=== PATIENT | female | born 1950 | race Caucasian/White ===

== ENCOUNTER → 2016-05-19 | Outpatient (CLI) | payer MEDICARE, BC ==
--- NOTE | 2016-05-23 08:04 | MM ---
Reason for exam: screening (asymptomatic). Last mammogram was performed 1 year and 3 months ago. History: Patient is postmenopausal. Physical Findings: A clinical breast exam by your physician is recommended on an annual basis and results should be correlated with mammographic findings. MG Screening Mammo w CAD Bilateral CC and MLO view(s) were taken. Prior study comparison: February 08, 2015, bilateral MG screening mammo w CAD. July 09, 2012, bilateral digital screening mammo w/CAD. January 18, 2011, bilateral digital screening mammo w/CAD. There are scattered fibroglandular densities. No significant changes when compared with prior studies. ASSESSMENT: Negative, BI-RAD 1 RECOMMENDATION: Routine screening mammogram of both breasts in 1 year.
== END | disposition home or self-care (01) ==
LOC: RADMAMWWP 09:24
PROVIDERS: ATTEND Obstetrics & Gynecology
DX: Z12.31 Encounter for screening mammogram for malignant neoplasm of breast (principal)

== ENCOUNTER 2017-07-21 07:25 | Emergency (ER) | payer MEDICARE ==
[2017-07-21 07:31] VITALS: TEMP 98.2
[2017-07-21] MEDS ORDERED: SODIUM CHLORIDE 0.9% 1,000 ML IV STA (08:15)
--- NOTE | 2017-07-21 08:23 | ED ---
General Adult HPI - General Chief complaint: Abdominal Pain Stated complaint: Abd/Groin Pain Time Seen by Provider: 07/21/17 08:10 Source: patient, RN notes reviewed Mode of arrival: ambulatory Limitations: no limitations - History of Present Illness Initial comments: Patient 67-year-old female presenting to the emergency room today with a chief complaint of lower abdominal pain over the last 3 days she. She states that steadily been getting worse. She describes it as sharp pain with any bowel movements or with gas. Patient states she's had some similar symptoms in the past. She does admit to some dry heaving last night. Currently rates her pain 8/10. Has declined any pain medication. Patient denies any other complaints or symptoms. Patient denies any recent fever, chills, shortness of breath, chest pain, back pain, numbness or tingling, dysuria or hematuria, constipation or diarrhea, headaches or visual changes, or any other complaints. - Related Data Home Medications Medication Instructions Recorded Confirmed Citalopram Hydrobromide [CeleXA] 20 mg PO QAM 11/27/14 03/31/15 Losartan-Hctz 50-12.5 mg [Hyzaar 1 each PO QAM 11/27/14 03/31/15 50-12.5] Omeprazole [PriLOSEC] 20 mg PO AC-BRKFST 11/27/14 03/31/15 Previous Rx's Medication Instructions Recorded Levofloxacin [Levaquin] 500 mg PO DAILY 7 Days tab 07/21/17 metroNIDAZOLE [Flagyl] 500 mg PO TID #21 tab 07/21/17 Allergies Allergy/AdvReac Type Severity Reaction Status Date / Time Penicillins Allergy Unknown Verified 07/21/17 07:31 Review of Systems ROS Statement: Those systems with pertinent positive or pertinent negative responses have been documented in the HPI. ROS Other: All systems not noted in ROS Statement are negative. Past Medical History Past Medical History: Hypertension History of Any Multi-Drug Resistant Organisms: None Reported Past Surgical History: Appendectomy, Section Additional Past Surgical History / Comment(s): half thyroid removed Past Anesthesia/Blood Transfusion Reactions: No Reported Reaction Past Psychological History: Depression Smoking Status: Never smoker Past Alcohol Use History: None Reported Past Drug Use History: None Reported General Exam - General Exam Comments Initial Comments: General: The patient is awake and alert, in no distress, and does not appear acutely ill. Eye: Pupils are equal, round and reactive to light, extra-ocular movements are intact. No nystagmus. There is normal conjunctiva bilaterally. No signs of icterus. Ears, nose, mouth and throat: There are moist mucous membranes and no oral lesions. Neck: The neck is supple, there is no tenderness or JVD. Cardiovascular: There is a regular rate and rhythm. No murmur, rub or gallop is appreciated. Respiratory: Lungs are clear to auscultation, respirations are non-labored, breath sounds are equal. No wheezes, stridor, rales, or rhonchi. Gastrointestinal: Abdomen soft on palpation. Patient does have tenderness below the abdomen and left lower quadrant. No rebound tenderness. No guarding. No CVA tenderness. Musculoskeletal: Normal ROM, no tenderness. Strength 5/5. Sensation intact. Pulses equal bilaterally 2+. Neurological: A&O x 3. CN II-XII intact, There are no obvious motor or sensory deficits. Coordination appears grossly intact. Speech is normal. Skin: Skin is warm and dry and no rashes or lesions are noted. Psychiatric: Cooperative, appropriate mood & affect, normal judgment. Limitations: no limitations Course Vital Signs 07/21/17 07/21/17 07:27 10:16 Temperature 98.2 F Pulse Rate 80 63 Respiratory 18 18 Rate Blood Pressure 148/81 130/72 O2 Sat by Pulse 98 96 Oximetry Medical Decision Making - Medical Decision Making Patient reexamined at the Center no signs of distress. She is resting. Patient labs been reviewed. Patient's CT the abdomen and pelvis does show evidence for sigmoid diverticulitis. Results were discussed with attending physician Dr. Baltazar. Patient will be discharged home placed on Levaquin and Flagyl. She is advised follow-up with family doctor next 2 days returning if symptoms increase or worsen. She states understanding and is in agreement. - Lab Data Result diagrams: 07/21/17 08:22 07/21/17 08:22 Lab Results 07/21/17 07/21/17 07/21/17 Range/Units 08:22 08:22 08:22 WBC 6.3 (3.8-10.6) k/uL RBC 4.80 (3.80-5.40) m/uL Hgb 14.8 (11.4-16.0) gm/dL Hct 44.2 (34.0-46.0) % MCV 92.2 (80.0-100.0) fL MCH 30.8 (25.0-35.0) pg MCHC 33.4 (31.0-37.0) g/dL RDW 13.1 (11.5-15.5) % Plt Count 199 (150-450) k/uL Neutrophils % 71 % Lymphocytes % 21 % Monocytes % 5 % Eosinophils % 1 % Basophils % 1 % Neutrophils # 4.5 (1.3-7.7) k/uL Lymphocytes # 1.3 (1.0-4.8) k/uL Monocytes # 0.3 (0-1.0) k/uL Eosinophils # 0.1 (0-0.7) k/uL Basophils # 0.0 (0-0.2) k/uL Sodium 140 (137-145) mmol/L Potassium 4.1 (3.5-5.1) mmol/L Chloride 104 (98-107) mmol/L Carbon Dioxide 26 (22-30) mmol/L Anion Gap 10 mmol/L BUN 14 (7-17) mg/dL Creatinine 0.70 (0.52-1.04) mg/dL Est GFR (CKD-EPI)AfAm >90 (>60 ml/min/1.73 sqM) Est GFR (CKD-EPI)NonAf 90 (>60 ml/min/1.73 sqM) Glucose 128 H (74-99) mg/dL Calcium 9.5 (8.4-10.2) mg/dL Total Bilirubin 0.9 (0.2-1.3) mg/dL AST 17 (14-36) U/L ALT 29 (9-52) U/L Alkaline Phosphatase 77 (38-126) U/L Total Protein 6.8 (6.3-8.2) g/dL Albumin 4.0 (3.5-5.0) g/dL Amylase 49 (30-110) U/L Lipase 89 (23-300) U/L Urine Color Yellow Urine Appearance Clear (Clear) Urine pH 6.0 (5.0-8.0) Ur Specific [place] 1.018 (1.001-1.035) Urine Protein Negative (Negative) Urine Glucose (UA) Negative (Negative) Urine Ketones 1+ H (Negative) Urine Blood Trace H (Negative) Urine Nitrite Negative (Negative) Urine Bilirubin Negative (Negative) Urine Urobilinogen <2.0 (<2.0) mg/dL Ur Leukocyte Esterase Small H (Negative) Urine RBC 3 (0-5) /hpf Urine WBC 6 H (0-5) /hpf Ur Squamous Epith Cells 2 (0-4) /hpf Urine Bacteria Rare H (None) /hpf Urine Mucus Rare H (None) /hpf Disposition Clinical Impression: Acute diverticulitis Disposition: HOME SELF-CARE Condition: Good Instructions: Diverticulitis (ED) Additional Instructions: Please use medication as discussed. Please follow-up with family doctor in the next 2 days of symptoms have not improved. Please return to emergency room if the symptoms increase or worsen or for any other concerns. Prescriptions: Levofloxacin [Levaquin] 500 mg PO DAILY 7 Days tab metroNIDAZOLE [Flagyl] 500 mg PO TID #21 tab Is patient prescribed a controlled substance at d/c from ED?: No Referrals: Heath Gomez DO [Primary Care Provider] - 1-2 days Time of Disposition: 10:27
[2017-07-21 08:46] LABS: Basophils % (A) 1 %; Eosinophils # (A) 0.1 k/uL (0-0.7); Eosinophils % (A) 1 %; HCT 44.2 % (34.0-46.0); HGB 14.8 gm/dL (11.4-16.0); Lymphocytes # (A) 1.3 k/uL (1.0-4.8); Lymphocytes % (A) 21 %; MCH 30.8 pg (25.0-35.0); MCHC 33.4 g/dL (31.0-37.0); MCV 92.2 fL (80.0-100.0); Mean Platelet Volume 7.4; Monocytes # (A) 0.3 k/uL (0-1.0); Monocytes % (A) 5 %; Neutrophils # (A) 4.5 k/uL (1.3-7.7); Neutrophils % (A) 71 %; Platelet Count 199 k/uL (150-450); RDW 13.1 % (11.5-15.5); WBC 6.3 k/uL (3.8-10.6)
[2017-07-21 08:55] LABS: Appearance,Urine Clear (Clear); Bacteria,Urine Rare /hpf; Bilirubin,Urine Negative (Negative); Blood,Urine Trace (Negative); Color,Urine Yellow; Glucose,Urine (UA) Negative (Negative); Ketones,Urine 1+ (Negative); Leukocyte Esterase,Urine Small (Negative); Mucus,Urine Rare /hpf; Nitrite,Urine Negative (Negative); Protein,Urine Negative (Negative); RBC,Urine 3 /hpf (0-5); Specific Gravity,Urine 1.018 (1.001-1.035); Squamous Epithelial Cell,Urine 2 /hpf (0-4); Urobilinogen,Urine <2.0 mg/dL (<2.0); WBC,Urine 6 /hpf (0-5)
[2017-07-21 09:19] LABS: ALT 29 U/L (9-52); AST 17 U/L (14-36); Alkaline Phosphatase 77 U/L (38-126); Amylase 49 U/L (30-110); Anion Gap 10 mmol/L; Blood Urea Nitrogen 14 mg/dL (7-17); Calcium 9.5 mg/dL (8.4-10.2); Carbon Dioxide 26 mmol/L (22-30); Chloride 104 mmol/L (98-107); Glucose 128 mg/dL (74-99); Lipase 89 U/L (23-300); Potassium 4.1 mmol/L (3.5-5.1); Sodium 140 mmol/L (137-145); Total Bilirubin 0.9 mg/dL (0.2-1.3); Total Protein 6.8 g/dL (6.3-8.2)
[2017-07-21] MEDS ORDERED: ONDANSETRON 4 MG/2 ML VIAL IVP STA (10:09)
[2017-07-21] MEDS ORDERED: MORPHINE SULFATE 2 MG/ML SYRINGE IVP STA (10:09)
--- NOTE | 2017-07-21 10:09 | CT ---
EXAMINATION TYPE: CT abdomen pelvis w con DATE OF EXAM: 07/21/2017 COMPARISON: CT 09/25/2015 HISTORY: Abdominal pain. LLQ CT DLP: 1621.10 mGycm. Automated exposure control for dose reduction was used. TECHNIQUE: Helical acquisition of images was performed from the lung bases through the pelvis. CONTRAST: Performed with Oral Contrast and with IV Contrast, patient injected with 100 ml mL of Isovu e 300. FINDINGS: LUNG BASES: No significant abnormality is appreciated. LIVER/GB: No significant abnormality is appreciated. PANCREAS: No significant abnormality is seen. SPLEEN: No significant abnormality is seen. ADRENALS: No significant abnormality is seen. KIDNEYS: No significant abnormality is seen. There are a few tiny 1 and 2 mm nonobstructing renal valentine cifications appreciated. FREE AIR: No free air is visualized. RETROPERITONEAL ADENOPATHY: None visualized REPRODUCTIVE ORGANS: No significant abnormality is seen URINARY BLADDER: No significant abnormality is seen. PELVIC ADENOPATHY: None visualized. OSSEOUS STRUCTURES: No significant abnormality is seen. BOWEL: There is sigmoid mural thickening and innumerable diverticula. More impressive is the indisti nctness of the sigmoid with the surrounding mesocolon. The mucosal: Shows reticular edematous change without gas bubbles and without drainable fluid collection. The findings are consistent with mild-to- moderate sigmoid diverticulitis. Not recently obtained, eventual follow-up colonoscopy is requested t o ensure normal underlying mucosa. VASCULATURE: Unremarkable. IMPRESSION: MODERATE SIGMOID DIVERTICULITIS.
[2017-07-21 10:45] VITALS: BP 125/67; PULSE 61; RESP 20
== END 2017-07-21 10:45 | disposition home or self-care (01) ==
LOC: EC 07:25
DX: K57.32 Diverticulitis of large intestine without perforation or abscess without bleeding (principal); I10 Essential (primary) hypertension; F32.9 Major depressive disorder, single episode, unspecified; Z90.49 Acquired absence of other specified parts of digestive tract; Z79.899 Other long term (current) drug therapy; Z88.0 Allergy status to penicillin
CPT/HCPCS: 99284; 96374; 96375; 96361; 36415; 80053; 82150; 83690; 85025; 81001; 74177; J2405; J2270; Q9967

== ENCOUNTER 2018-01-04 08:45 | Day surgery (SDC) | payer MEDICARE ==
[2018-01-03 08:46] VITALS: BMI 39.5
[~2018-01-04 08:45] MED LIST: LACTATED RINGERS 1,000 ML IV SCH
[2018-01-04] MEDS ORDERED: LIDOCAINE 1% 20 ML VIAL (10MG/ML) FOR IV START INTRADERMA ONE (09:38)
[2018-01-04 09:45] VITALS: RESP 16; TEMP 97.4
[2018-01-04] MEDS ORDERED: PROPOFOL 10 MG/ML 20 ML VIAL IV ONE (10:04)
[2018-01-04] MEDS ORDERED: GLYCOPYRROLATE 0.2 MG/ML 2 ML VIAL ONE (10:04)
[2018-01-04] MEDS ORDERED: LIDOCAINE 1% INJ 10MG/ML (20 ML MDV) ONE (10:04)
--- NOTE | 2018-01-04 10:13 | P.PCN ---
Date of Procedure: 01/04/18 Procedure(s) Performed: BRIEF HISTORY: Patient is a 67-year-old, pleasant, female, scheduled for an upper endoscopy as a part of evaluation of chronic indigestion and intermittent nausea vomiting for the last 2 years duration.. PROCEDURE PERFORMED: Esophagogastroduodenoscopy with biopsy. PREOPERATIVE DIAGNOSIS: Chronic indigestion and intermittent nausea vomiting of 2 years duration. IV sedation per anesthesia. PROCEDURE: After informed consent was obtained, the patient was brought into the endoscopy unit. IV sedation was administered by Anesthesia under continuous monitoring. Initially the Olympus GIF-140 video endoscope was inserted into the mouth. Esophagus intubated without any difficulty. It was gradually advanced into the stomach and duodenum and carefully examined. The bulb and the second part of the duodenum appeared normal. The scope at this time was withdrawn to the stomach, adequately insufflated with air, and upon careful examination, mucosa of the antrum and mild gastritis and biopsies were done from this area. The body, cardia and the fundus appeared normal. The scope was then withdrawn into the esophagus. The size hiatal hernia noted. The GE junction was located at 33 cm from the incisors. There were linear erosions in the distal esophagus consistent with LA grade B reflux esophagitis. Rest of the esophagus appeared normal and the patient tolerated the procedure well. IMPRESSION: 1. Linear erosions in the distal esophagus consistent with LA grade B reflux esophagitis. 2. Moderate size hiatal hernia and mild antral gastritis. RECOMMENDATIONS: The findings of this examination were discussed with the patient is a family. She was advised to follow with the biopsy results. She will be given a prescription for Prilosec 20 mg daily to be taken half hour before breakfast and follow antireflux measures. .
[2018-01-04 10:59] VITALS: BP 123/74; PULSE 77
== END 2018-01-04 11:02 | disposition home or self-care (01) ==
LOC: ORWHC2ENDO 08:45
PROVIDERS: ATTEND Internal Medicine Gastroenterology
DX: K21.0 Gastro-esophageal reflux disease with esophagitis (principal); K29.50 Unspecified chronic gastritis without bleeding; K44.9 Diaphragmatic hernia without obstruction or gangrene; Z79.82 Long term (current) use of aspirin; Z79.899 Other long term (current) drug therapy; I10 Essential (primary) hypertension; Z88.0 Allergy status to penicillin
CPT/HCPCS: 88305; 43239; J2001; J2704

== ENCOUNTER → 2018-06-25 | Outpatient (CLI) | payer MEDICARE ==
--- NOTE | 2018-06-26 08:36 | BD ---
EXAMINATION TYPE: Axial Bone Density DATE OF EXAM: 06/25/2018 COMPARISON: NONE CLINICAL HISTORY: 68 YR OLD FEMALE....ICD-10 CODE: Z78.0 POSTMENOPAUSAL, M81.0 KNOWN OSTEOPENIA Height: 65.4 Weight: 236 FRAX RISK QUESTIONS: NOTHING TO NOTE HERE RISK FACTORS HISTORY OF: HX OF FINGER FX UNDER 50 YRS OLD History of Wrist Fracture: RT WRIST, UNDER 50 YRS OLD Postmenopausal woman: YES AT AGE 56 YRS Lost more than 2 inches in height since high school: YES MEDICATIONS: Additional Medications: BP MEDS, REFLUX MEDS, Additional History: HYPERTENSION EXAM MEASUREMENTS: Bone mineral densitometry was performed using the [employer] System. Bone mineral density as measured about the Lumbar spine is: ----- L1-L4(G/cm2): 1.417 T Score Values are as follows: ----- L1: 1.6 ----- L2: 1.8 ----- L3: 1.8 ----- L4: 2.5 ----- L1-L4: 2.0 Bone mineral density FIRST DEXA SCAN AT [facility] Bone mineral density about the R hip (g/cm2): 1.056 Bone mineral density about the L hip (g/cm2): 1.166 T Score values are as follows: -----R Neck: -0.4 -----L Neck: -0.3 -----R Total: 0.4 -----L Total: 1.3 Bone mineral density FIRST DEXA AT [facility] FRAX%s: THERE IS A 6.8% CHANCE FOR A MAJOR OSTEOPOROTIC FX AND A 0.3% FOR HIP FX....PROBABILITY OF FX IN 10 YRS TIME IMPRESSION: Normal (Values between +1 and -1 indicate normal bone mass). Consider repeating this study in 5 year s or sooner if there is some new clinical indication. NOTE: T-SCORE=SD OF THE YOUNG ADULT MEAN.
--- NOTE | 2018-06-26 10:14 | MM ---
Reason for exam: screening (asymptomatic). Last mammogram was performed 2 years and 1 month ago. History: Patient is postmenopausal. Physical Findings: A clinical breast exam by your physician is recommended on an annual basis and results should be correlated with mammographic findings. MG Screening Mammo w CAD Bilateral CC and MLO view(s) were taken. Prior study comparison: May 19, 2016, bilateral MG screening mammo w CAD. February 08, 2015, bilateral MG screening mammo w CAD. There are scattered fibroglandular densities. No significant changes when compared with prior studies. ASSESSMENT: Negative, BI-RAD 1 RECOMMENDATION: Routine screening mammogram of both breasts in 1 year.
== END ==
LOC: RADMAMWWP 14:51
PROVIDERS: ATTEND Family Medicine
DX: Z12.31 Encounter for screening mammogram for malignant neoplasm of breast (principal); M81.0 Age-related osteoporosis without current pathological fracture; Z78.0 Asymptomatic menopausal state
CPT/HCPCS: 77067; 77080

== ENCOUNTER → 2018-09-02 | Outpatient (CLI) | payer MEDICARE ==
--- NOTE | 2018-09-03 17:49 | ECHOF ---
Referral Reason:I10 HTN MEASUREMENTS -------- HEIGHT: 170.2 cm WEIGHT: 104.3 kg BP: RVIDd: 3.0 cm (< 3.3) IVSd: 1.3 cm (0.6 - 1.1) LVIDd: 4.3 cm (3.9 - 5.3) LVPWd: 1.0 cm (0.6 - 1.1) IVSs: 1.5 cm LVIDs: 3.0 cm LVPWs: 1.1 cm LA Diam: 3.7 cm (2.7 - 3.8) LAESV Index (A-L): 23.97 ml/m Ao Diam: 3.0 cm (2.0 - 3.7) AV Cusp: 1.5 cm (1.5 - 2.6) LA Diam: 4.1 cm (2.7 - 3.8) MV EXCURSION: 22.560 mm (> 18.000) MV EF SLOPE: 183 mm/s (70 - 150) EPSS: 0.3 cm MV E Saroj: 0.56 m/s MV DecT: 145 ms MV A Saroj: 0.72 m/s MV E/A Ratio: 0.78 RAP: 5.00 mmHg RVSP: 27.77 mmHg FINDINGS -------- Sinus rhythm. This was a technically adequate study. The left ventricular size is normal. There is mild concentric left ventricular hypertrophy. Overa ll left ventricular systolic function is normal with, an EF between 55 - 60 %. The right ventricle is normal in size. The left atrium is mildly dilated. Normal LA size by volume 22+/-6 ml/m2. The right atrial size is normal. The aortic valve is trileaflet, and appears structurally normal. No aortic stenosis or regurgitation. Mild mitral regurgitation is present. Mild tricuspid regurgitation present. There is no evidence of pulmonary hypertension. The right v entricular systolic pressure, as measured by Doppler, is 27.77mmHg. There is no pulmonic regurgitation present. The aortic root size is normal. There is no pericardial effusion. CONCLUSIONS -------- 1. The left ventricular size is normal. 2. There is mild concentric left ventricular hypertrophy. 3. Overall left ventricular systolic function is normal with, an EF between 55 - 60 %. 4. The right ventricle is normal in size. 5. The left atrium is mildly dilated. 6. Normal LA size by volume 22+/-6 ml/m2. 7. The right atrial size is normal. 8. The aortic valve is trileaflet, and appears structurally normal. No aortic stenosis or regurgitati on. 9. Mild mitral regurgitation is present. 10. Mild tricuspid regurgitation present. 11. There is no evidence of pulmonary hypertension. 12. The right ventricular systolic pressure, as measured by Doppler, is 27.77mmHg. 13. There is no pulmonic regurgitation present. 14. The aortic root size is normal. 15. There is no pericardial effusion. CUSTOMER RELATIONSHIP SPECIALIST: Dinora Richards RDCS
== END | disposition home or self-care (01) ==
LOC: RADECHMAIN 15:21
PROVIDERS: ATTEND Family Medicine
DX: I11.9 Hypertensive heart disease without heart failure (principal); I08.1 Rheumatic disorders of both mitral and tricuspid valves
CPT/HCPCS: 93306

== ENCOUNTER → 2018-11-15 | Outpatient (CLI) | payer MEDICARE ==
--- NOTE | 2018-11-16 03:10 | MR ---
EXAMINATION TYPE: MR tmj wo con DATE OF EXAM: 11/15/2018 COMPARISON: None HISTORY: Otalgia, right ear, jaw pain x 3 mths Standard multiplanar, multisequence MRI departmental protocol Multiplanar, multisequence images of the temporomandibular joints were acquired. FINDINGS: The left temporal mandibular joint appears intact. The meniscus is in normal position with the close mouth view. On the right side there is anterior displacement of the meniscus on the closed mouth view. On the open-mouth view there is normal anterior subluxation of the left mandibular condyle. The menis cus is in normal position above the mandibular condyle. On the right side there is normal anterior subluxation of the mandibular condyle. The meniscus is dis placed slightly anteriorly. I see no focal bone destruction. There is no evidence of a soft tissue ma ss. . IMPRESSION: There is abnormal appearance of the right side meniscus which is displaced anteriorly. Normal left side temporomandibular joint.
== END | disposition home or self-care (01) ==
LOC: RADMRIMAIN 13:43
PROVIDERS: ATTEND Otolaryngology
DX: H92.01 Otalgia, right ear (principal)
CPT/HCPCS: 70336

== ENCOUNTER → 2018-11-26 | Outpatient (CLI) | payer MEDICARE ==
[2018-11-26 13:05] LABS: HCT 45.6 % (34.0-46.0); HGB 14.6 gm/dL (11.4-16.0); MCV 93.6 fL (80.0-100.0); Mean Platelet Volume 6.8; Platelet Count 237 k/uL (150-450); RBC 4.88 m/uL (3.80-5.40); RDW 12.6 % (11.5-15.5); WBC 5.2 k/uL (3.8-10.6)
== END | disposition home or self-care (01) ==
LOC: LABPAT 11:20
PROVIDERS: ATTEND Anesthesiology
DX: Z01.812 Encounter for preprocedural laboratory examination (principal)
CPT/HCPCS: 36415; 85027

== ENCOUNTER 2018-11-27 06:21 | Day surgery (SDC) | payer MEDICARE ==
[2018-11-25 10:33] VITALS: BMI 37.1
[~2018-11-27 06:21] MED LIST changes: +DEXAMETHASONE SOD PHOSPHATE 10 MG/ML 1 ML VIAL IV ONE; +HYDROmorphone 0.5 MG/0.5 ML SYRINGE IVP PRN; +LIDOCAINE 1% 20 ML VIAL (10MG/ML) FOR IV START INTRADERMA PRN; +MIDAZOLAM 2 MG/2 ML VIAL IV PRN; +ONDANSETRON 4 MG/2 ML VIAL IVP ONE; +SCOPOLAMINE 1.5MG/72HR PATCH TRANSDERM ONE
[2018-11-27] MEDS ORDERED: LACTATED RINGERS 1,000 ML IV ONE ×2 (07:01→07:02)
[2018-11-27] MEDS ORDERED: HEPARIN SODIUM,PORCINE 5,000 UNIT/ML 1 ML VIAL SQ ONE (07:56)
--- NOTE | 2018-11-27 08:04 | P.GSHP ---
History of Present Illness H&P Date: 11/27/18 Chief Complaint: Right inguinal hernia 68-year-old female presents today for right inguinal hernia. Patient has complaints of mild pain at that location. Increasing in size per patient. No history of previous hernia repair. Recent CAT scan ironically did not show the hernia. Past Medical History Past Medical History: Hypertension Additional Past Medical History / Comment(s): rt inguinal hernia History of Any Multi-Drug Resistant Organisms: None Reported Past Surgical History: Appendectomy, Section Additional Past Surgical History / Comment(s): half thyroid removed. COLONOSCOPY. EGD Past Anesthesia/Blood Transfusion Reactions: No Reported Reaction Smoking Status: Never smoker - Past Family History Father Family Medical History: Coronary Artery Disease (CAD), CVA/TIA Additional Family Medical History / Comment(s): "blood clot to intestines- 80% of intestine removed" Mother Family Medical History: Cancer Additional Family Medical History / Comment(s): cancer of hip Sister(s) Family Medical History: Cancer Additional Family Medical History / Comment(s): melanoma Medications and Allergies Home Medications Medication Instructions Recorded Confirmed Type Losartan-Hctz 50-12.5 mg [Hyzaar 1 each PO QAM 11/27/14 11/25/18 History 50-12.5] Aspirin [Adult Low Dose Aspirin EC] 81 mg PO DAILY 01/03/18 11/25/18 History Celecoxib [CeleBREX] 200 mg PO DAILY 11/25/18 11/25/18 History Cetirizine HCl [Zyrtec] 10 mg PO DAILY 11/25/18 11/25/18 History Allergies Allergy/AdvReac Type Severity Reaction Status Date / Time Penicillins Allergy Rash/Hives Verified 11/25/18 10:22 Surgical - Exam Vital Signs Temp Pulse Resp BP Pulse Ox 97.6 F 72 18 155/79 96 11/27/18 06:38 11/27/18 06:38 11/27/18 06:38 11/27/18 06:38 11/27/18 06:38 Physical exam: General: Well-developed, well-nourished HEENT: Normocephalic, sclerae nonicteric Abdomen: Nontender, nondistended, reducible right inguinal hernia Extremities: No edema Neuro: Alert and oriented Assessment and Plan (1) Right inguinal hernia Narrative/Plan: Will proceed with laparoscopic da Cesar assisted repair right inguinal hernia with mesh, possible bilateral. Risks of bleeding, infection, recurrence, bladder and bowel injury, numbness, nerve injury, conversion to an open procedure were discussed with the patient. The patient understands and wishes to proceed. Current Visit: Yes Status: Acute Code(s): K40.90 - UNIL INGUINAL HERNIA, W/O OBST OR GANGR, NOT SPCF RECUR SNOMED Code(s): 530829651
[2018-11-27] MEDS ORDERED: NEOSTIGMINE 1 MG/ML 10 ML VIAL ONE (08:08)
[2018-11-27] MEDS ORDERED: MIDAZOLAM 2 MG/2 ML VIAL ONE (08:08)
[2018-11-27] MEDS ORDERED: KETOROLAC 30 MG/ML 1 ML VIAL ONE (08:08)
[2018-11-27] MEDS ORDERED: HYDROmorphone (PF) 1 MG/ML ONE (08:08)
[2018-11-27] MEDS ORDERED: SUCCINYLCHOLINE CHLORIDE 100 MG/5 ML SYR IV ONE (08:08)
[2018-11-27] MEDS ORDERED: fentaNYL (PF) 50 MCG/ML 2 ML AMP ONE (08:08)
[2018-11-27] MEDS ORDERED: PROPOFOL 10 MG/ML 20 ML VIAL IV ONE (08:08)
[2018-11-27] MEDS ORDERED: GLYCOPYRROLATE 0.2 MG/ML 2 ML VIAL ONE (08:08)
[2018-11-27] MEDS ORDERED: LIDOCAINE 1% INJ 10MG/ML (20 ML MDV) ONE (08:08)
[2018-11-27] MEDS ORDERED: ROCURONIUM BROMIDE 10 MG/ML 10 ML VIAL IV ONE (08:08)
[2018-11-27] MEDS ORDERED: BUPIVACAINE (PF) 0.25% 30 ML VIAL SQ ONE ×2 (08:50)
[2018-11-27 09:42] VITALS: TEMP 97.8
[2018-11-27] MEDS ORDERED: HYDROcodone/APAP 5-325MG 1 EACH TAB PO PRN (09:42)
[2018-11-27] MEDS ORDERED: NALOXONE 0.4 MG/ML 1 ML VIAL IV PRN (09:42)
--- NOTE | 2018-11-27 09:46 | P.OP ---
Date of Procedure: 11/27/18 Procedure(s) Performed: PREOPERATIVE DIAGNOSIS: Right inguinal hernia POSTOPERATIVE DIAGNOSIS: Same PROCEDURE: Laparoscopic repair right inguinal hernia with the da Cesar robot assistance with mesh SURGEON: Erlinda EBL: Minimal ANESTHESIA: General COMPLICATIONS: None OPERATIVE PROCEDURE: Patient was placed in the operating table in the supine position. The patient was placed under general anesthesia. The abdomen was prepped and draped in usual sterile fashion. A small curvilinear supraumbilical incision was made. The fascia was retracted anteriorly with Ulises forceps. The Veress needle was inserted. The saline drop test was normal. Insufflation took place to 15 mmHg. A 5 mm trocar was placed into the peritoneal cavity. This was later switched to a 12 mm trocar. 2 additional 8 mm trochars were placed in the right upper quadrant and left upper quadrant under visualization. The patient had some adhesions between the omentum and the abdominal wall in 2 separate locations. These were sharply lysed without difficulty. The robotic arms were then brought in and docked into place. The fenestrated bipolar was used in the left arm and the laparoscopic andrew was utilized in the right arm. A 30 12 mm scope was used in the up position. The peritoneal cavity was inspected. A she had an obvious direct hernia on the right. There was some mild scarring of the adjacent peritoneum. There was no hernia on the left. The peritoneum was incised in a horizontal fashion cephalad to the internal inguinal ring. Following that careful dissection of the preperitoneal space took place. This took place using both electrocautery, sharp dissection but primarily blunt dissection. Visualization of the pubic tubercle and Chris's ligament took place medially. Full dissection took place laterally as well. The hernia sac was fully dissected. Once we had adequate space the 15 x 10 progrip mesh was advanced into the preperitoneal space and flattened out appropriately to cover all potential hernia sites. No sutures were used. The peritoneal defect was then closed using a locking 2-0 VLok suture. The pneumoperitoneum was then evacuated. The fascia at the 12 mm site was closed using the Joe Wilks technique and an 0 Vicryl stitch. The skin of all 3 sites was closed using a 4- 0 Monocryl stitch. Skin glue was then applied. DISPOSITION: Stable to recovery room
[2018-11-27 11:14] VITALS: RESP 18
[2018-11-27 11:18] VITALS: BP 128/78; PULSE 54
[2018-11-27] MEDS ORDERED: HYDROcodone/APAP 5-325MG 1 EACH TAB PO ONE (11:50)
== END 2018-11-27 12:20 | disposition home or self-care (01) ==
LOC: OR 06:21
PROVIDERS: ATTEND Surgery
DX: K40.90 Unilateral inguinal hernia, without obstruction or gangrene, not specified as recurrent (principal); I10 Essential (primary) hypertension; K21.9 Gastro-esophageal reflux disease without esophagitis; E66.9 Obesity, unspecified; Z68.35 Body mass index [BMI] 35.0-35.9, adult; E89.0 Postprocedural hypothyroidism; Z82.49 Family history of ischemic heart disease and other diseases of the circulatory system; Z82.3 Family history of stroke; Z80.8 Family history of malignant neoplasm of other organs or systems; Z84.89 Family history of other specified conditions; Z79.82 Long term (current) use of aspirin; Z79.899 Other long term (current) drug therapy; Z88.0 Allergy status to penicillin; Z91.030 Bee allergy status
CPT/HCPCS: 49650; S2900

== ENCOUNTER → 2019-09-30 | Outpatient (CLI) | payer MEDICARE ==
--- NOTE | 2019-09-30 14:09 | XR ---
EXAMINATION TYPE: XR chest 2V DATE OF EXAM: 09/30/2019 COMPARISON: NONE HISTORY: Shortness of breath TECHNIQUE: Frontal and lateral views of the chest are obtained. FINDINGS: Scattered senescent parenchymal changes noted. No evidence for infiltrate. No evidence for atelectasis. Heart size is stable. Mediastinal structures are stable and grossly unremarkable. No evidence for hilar prominence. Degenerative changes dorsal spine. IMPRESSION: 1. No evidence for acute pulmonary disease.
== END | disposition home or self-care (01) ==
LOC: RADXRMAIN 13:44
PROVIDERS: ATTEND Family Medicine
DX: R06.02 Shortness of breath (principal); R05 Cough; R06.2 Wheezing; K21.9 Gastro-esophageal reflux disease without esophagitis
CPT/HCPCS: 71046

== ENCOUNTER 2021-01-14 07:36 | Day surgery (SDC) | payer MEDICARE ==
[2021-01-12 13:40] VITALS: BMI 39.7
[~2021-01-14 07:36] MED LIST changes: -DEXAMETHASONE SOD PHOSPHATE 10 MG/ML 1 ML VIAL IV ONE; -HYDROmorphone 0.5 MG/0.5 ML SYRINGE IVP PRN; -LIDOCAINE 1% 20 ML VIAL (10MG/ML) FOR IV START INTRADERMA PRN; -MIDAZOLAM 2 MG/2 ML VIAL IV PRN; -ONDANSETRON 4 MG/2 ML VIAL IVP ONE; -SCOPOLAMINE 1.5MG/72HR PATCH TRANSDERM ONE
[2021-01-14 08:08] VITALS: TEMP 97
[2021-01-14] MEDS ORDERED: PROPOFOL 10 MG/ML 20 ML VIAL IV ONE (08:47)
[2021-01-14] MEDS ORDERED: LIDOCAINE 1% INJ 10MG/ML (20 ML MDV) ONE (08:47)
--- NOTE | 2021-01-14 09:05 | P.PCN ---
Date of Procedure: 01/14/21 Procedure(s) Performed: BRIEF HISTORY: Patient is a 70-year-old pleasant white female scheduled for an elective colonoscopy as a part of value should prior history of colon polyps. Last colonoscopy was 5 years ago. PROCEDURE PERFORMED: Colonoscopy with snare polypectomy. PREOPERATIVE DIAGNOSIS: History of colon polyps. IV sedation per Anesthesia. PROCEDURE: After informed consent was obtained, the patient, was brought into the endoscopy unit. IV sedation was administered by Anesthesia under continuous monitoring. Digital rectal examination was normal. Initially the Olympus CF-160 flexible video colonoscope was then inserted in the rectum, gradually advanced into the cecum without any difficulty. Careful examination was performed as the scope was gradually being withdrawn. Ileocecal valve and the appendiceal orifice were visualized and appeared normal. Prep was excellent. Mucosa of the cecum, ascending colon, transverse colon, descending colon, sigmoid colon, and rectum appeared normal. On recent sigmoid diverticulosis. Retroflexion was performed in the rectum and no lesions were seen. The patient tolerated the procedure well. IMPRESSION: Normal-appearing colon from rectum to cecum with no evidence of colorectal neoplasia . Moderate sigmoid diverticulosis. RECOMMENDATIONS: Findings of this examination were discussed with the patient as well as her Family. She was advised to have a repeat colonoscopy in 5 years from now because of the prior history of colon polyps..
[2021-01-14 09:13] VITALS: RESP 16
[2021-01-14 09:27] VITALS: BP 146/89; PULSE 73
== END 2021-01-14 09:46 | disposition home or self-care (01) ==
LOC: ORWHC2ENDO 07:36
PROVIDERS: ATTEND Internal Medicine Gastroenterology
DX: Z12.11 Encounter for screening for malignant neoplasm of colon (principal); K57.30 Diverticulosis of large intestine without perforation or abscess without bleeding; I10 Essential (primary) hypertension; Z86.010 Personal history of colon polyps; Z79.899 Other long term (current) drug therapy; Z88.0 Allergy status to penicillin
CPT/HCPCS: J2001; J2704; G0105

== ENCOUNTER → 2021-11-23 | Outpatient (CLI) | payer MEDICARE ==
--- NOTE | 2021-11-24 08:27 | MM ---
Reason for Exam: Screening (asymptomatic). Last mammogram was performed 3 year(s) and 5 month(s) ago. Patient History: Menarche at age 13. First Full-Term at age 29. Postmenopausal. Risk Values: Brittany 5 year model risk: 1.9%. NCI Lifetime model risk: 5.4%. Prior Study Comparison: 02/08/2015 Bilateral Screening Mammogram, [facility]. 05/19/2016 Bilateral Screening Mammogram, [facility]. 06/25/2018 Bilateral Screening Mammogram, [facility]. Tissue Density: There are scattered fibroglandular densities. Findings: Analyzed By CAD. There is no suspicious group of microcalcifications or new suspicious mass in either breast. Stable chronic nodularity within the right breast. No significant change from prior exams. Overall Assessment: Benign, BI-RAD 2 Management: Screening Mammogram of both breasts in 1 year. A clinical breast exam by your physician is recommended on an annual basis and results should be correlated with mammographic findings. Electronically signed and approved by: Sudheer Starks D.O.
--- NOTE | 2021-11-24 08:27 | MM ---
Reason for Exam: Screening (asymptomatic). Last mammogram was performed 3 year(s) and 5 month(s) ago. Patient History: Menarche at age 13. First Full-Term at age 29. Postmenopausal. Risk Values: Brittany 5 year model risk: 1.9%. NCI Lifetime model risk: 5.4%. Prior Study Comparison: 02/08/2015 Bilateral Screening Mammogram, [facility]. 05/19/2016 Bilateral Screening Mammogram, [facility]. 06/25/2018 Bilateral Screening Mammogram, [facility]. Tissue Density: There are scattered fibroglandular densities. Findings: Analyzed By CAD. There is no suspicious group of microcalcifications or new suspicious mass in either breast. Stable chronic nodularity within the right breast. No significant change from prior exams. Overall Assessment: Benign, BI-RAD 2 Management: Screening Mammogram of both breasts in 1 year. A clinical breast exam by your physician is recommended on an annual basis and results should be correlated with mammographic findings. Electronically signed and approved by: Sudheer Starks D.O.
== END | disposition home or self-care (01) ==
LOC: RADMAMWWP 13:03
PROVIDERS: ATTEND Family Medicine
DX: Z12.31 Encounter for screening mammogram for malignant neoplasm of breast (principal)
CPT/HCPCS: 77063; 77067

== ENCOUNTER → 2021-12-13 | Outpatient (CLI) | payer MEDICARE | END | disposition home or self-care (01) | LOC: RADECHMAIN 12:23 | PROVIDERS: ATTEND Family Medicine | DX: I48.91 Unspecified atrial fibrillation (principal) | CPT/HCPCS: 93270 ==

== ENCOUNTER → 2023-01-10 | Outpatient (CLI) | payer MEDICARE ==
--- NOTE | 2023-01-14 18:00 | MM ---
Reason for Exam: Screening (asymptomatic). Last mammogram was performed 1 year(s) and 2 month(s) ago. Patient History: Menarche at age 13. First Full-Term at age 29. Postmenopausal. Risk Values: Brittany 5 year model risk: 2.0%. NCI Lifetime model risk: 5.1%. Prior Study Comparison: 05/19/2016 Bilateral Screening Mammogram, [facility]. 06/25/2018 Bilateral Screening Mammogram, [facility]. 11/23/2021 Bilateral MG 3D screening mammo w/cad, [facility]. Tissue Density: There are scattered fibroglandular densities. Findings: Analyzed By CAD. There is no suspicious group of microcalcifications or new suspicious mass in either breast. Overall Assessment: Negative, BI-RAD 1 Management: Screening Mammogram of both breasts in 1 year. . Patient should continue monthly self-breast exams. A clinical breast exam by your physician is recommended on an annual basis. This exam should not preclude additional follow-up of suspicious palpable abnormalities. Note on Brittany scores and lifetime risk: 1. A Brittany score greater than 3% is considered moderate risk. If this is the case, consider specialist referral to assess eligibility for a risk reducing agent. 2. If overall lifetime risk for the development of breast cancer is 20% or higher, the patient may qualify for future screening with alternating mammogram and breast MRI. Electronically signed and approved by: Gideon Ford M.D. Radiologist
== END | disposition home or self-care (01) ==
LOC: RADMAMWWP 10:10
PROVIDERS: ATTEND Family Medicine
DX: Z12.31 Encounter for screening mammogram for malignant neoplasm of breast (principal); Z78.0 Asymptomatic menopausal state
CPT/HCPCS: 77063; 77067

== ENCOUNTER → 2023-02-15 | Outpatient (CLI) | payer MEDICARE ==
--- NOTE | 2023-02-15 15:40 | P.SLEEP ---
History of Present Illness DATE: 02/15/2023 CONSULTATION/NEW PATIENT EVALUATION HISTORY OF PRESENT ILLNESS/SLEEP-WAKE EVALUATION: 72-year-old lady had been evaluated in the sleep center for possible obstructive sleep apnea hypopnea syndrome. SLEEP SCHEDULE: Usually patient sleeps for about 7 hours per night. FALLING ASLEEP: No problems with falling asleep, although patient has TV set and bedroom. DURING SLEEP: Patient snores and wakes up from sleep 2 times with nocturia. Patient usually sleeps on the side position No history of hypnogogical ocmer ucinations, sleep paralysis, or cataplexy. DURING THE DAY/WAKE STATE: []. [place] sleepiness scale is 5. Usually patient doesn't take naps. PAST MEDICAL HISTORY: Paroxysmal atrial fibrillation, hypertension, hyperlipidemia, acid reflux. PAST SURGICAL HISTORY: Thyroid resection for benign thyroid nodule. MEDICATIONS: Metoprolol extended release, losartan/hydrochlorothiazide, Eliquis. SOCIAL HISTORY: Negative for smoking, alcohol consumption occasional. FAMILY HISTORY: Cancer, diabetes. REVIEW OF SYSTEMS: Loud snoring, awakenings from sleep, episodes of paroxysmal atrial fibrillation. No fevers. No double vision. No recent chest pain. No shortness of breath. No abdominal pain. No bleeding episodes. No blood in urine. No seizure episodes. PHYSICAL EXAMINATION: GENERAL: A pleasant patient without any distress. VITAL SIGNS: BP 122/74 , HR 62 , RR 12 , weight 256.6 pounds, height 5 foot 6-1/4 inches, body mass index 41.0 . HEENT: PERRLA, EOMI. Evaluation of oropharynx showed tongue protrudes midline, low position of soft palate Mallampati 3. NECK: Supple. No JVD. Thyroid is not palpable. 16.5 inches in circumference. LUNGS: Clear to percussion and to auscultation. Good air exchange. No wheezing or rhonchi. HEART: S1, S2 regular. No murmurs, gallops or rubs. ABDOMEN: Soft and nontender. Bowel sounds are present. No organomegaly appreciated. EXTREMITIES: No clubbing or cyanosis. SAFE EXPERT: Awake, alert, and oriented x3. Cranial nerves 2 to 7 intact. There is no fasciculation or atrophy noted. No focal deficits observed. ASSESSMENT: 1. Snoring, awakenings from sleep, low position of soft palate Mallampati 3, wide neck 16.5 inches in circumference. Obstructive sleep apnea hypopnea syndrome. 2. Paroxysmal atrial fibrillation. 3. Status post thyroid resection for benign nodule. 4. Hypertension. 5 hyperlipidemia. 6 . Acid reflux. 7. Status post . 8. Status post appendectomy. 9. Obesity, BMI 41.0 PLAN: 1. Polysomnography for evaluation of patient's breathing during sleep. 2. CPAP/BiPAP titration if sleep study confirms obstructive sleep apnea- hypopnea syndrome. 3. Preferable position during sleep on the side. 4. No driving if patient feels any sleepiness. Patient is aware of civil and criminal liability for unsafe driving. 5. Sleep hygiene with regular sleep time for at least 7.5-8 hours. 6. Watching and losing weight. Thank you very much for referring this patient for consultation. Sincerely, Adria Lynn MD, PhD, FAASM. Diplomat of [place] [employer], Sleep Medicine Board by [place] [employer] [place] [employer] Manager of [facility] [place] Past Medical History Past Medical History: Hypertension History of Any Multi-Drug Resistant Organisms: None Reported Past Surgical History: Appendectomy, Section Additional Past Surgical History / Comment(s): half thyroid removed. COLONOSCOPY. EGD Past Anesthesia/Blood Transfusion Reactions: No Reported Reaction Past Psychological History: Depression Smoking Status: Never smoker Past Alcohol Use History: None Reported - Past Family History Father Family Medical History: Coronary Artery Disease (CAD), CVA/TIA Additional Family Medical History / Comment(s): "blood clot to intestines- 80% of intestine removed" Mother Family Medical History: Cancer Additional Family Medical History / Comment(s): cancer OF COLON Sister(s) Family Medical History: Cancer Additional Family Medical History / Comment(s): melanoma Medications and Allergies Home Medications Medication Instructions Recorded Confirmed Type Losartan-Hctz 50-12.5 mg [Hyzaar 1 tab PO DAILY 11/27/14 06/23/21 History 50-12.5] Cholecalciferol [Vitamin D3 (25 25 mcg PO DAILY 06/23/21 06/23/21 History Mcg = 1000 Iu)] Magnesium 200 mg PO DAILY 06/23/21 06/23/21 History Multivitamins, Thera [Multivitamin 1 tab PO DAILY 06/23/21 06/23/21 History (formulary)] Zinc 50 mg PO DAILY 06/23/21 06/23/21 History Allergies Allergy/AdvReac Type Severity Reaction Status Date / Time Penicillins Allergy Rapid Verified 06/23/21 11:21 Heart Rate Sleep Note - Sleep Note Sleep Note: Temperature: Pulse Rate: Respiratory Rate: Blood Pressure: SpO2: Height: Weight: BMI: Neck Circumference:
== END ==
LOC: 3 N SLEEP 13:51
PROVIDERS: ATTEND Internal Medicine
DX: G47.33 Obstructive sleep apnea (adult) (pediatric) (principal); I10 Essential (primary) hypertension; E78.5 Hyperlipidemia, unspecified; K21.9 Gastro-esophageal reflux disease without esophagitis; E66.9 Obesity, unspecified; D34 Benign neoplasm of thyroid gland; I48.91 Unspecified atrial fibrillation; R06.83 Snoring; Z98.890 Other specified postprocedural states; Z99.89 Dependence on other enabling machines and devices; Z90.49 Acquired absence of other specified parts of digestive tract; Z68.41 Body mass index [BMI] 40.0-44.9, adult; Z88.0 Allergy status to penicillin
CPT/HCPCS: 99211

== ENCOUNTER 2023-03-25 19:19 | Outpatient (CLI) | payer MEDICARE ==
--- NOTE | 2023-03-28 12:33 | P.PCN ---
Description of Procedure: POLYSOMNOGRAPHY REPORT PROCEDURE(S)/DATE(S): Polysomnography 03/25/2023 CLINICAL: Patient has been seen in the sleep center for evaluation of obstructive sleep apnea-hypopnea syndrome. Please see my consultation. Sleep study has been done for evaluation of patient breathing during the sleep. PROCEDURE: The standard montage for clinical polysomnography included the electroencephalogram, the electrooculogram, the mentalis surface electromyography and Lead II cardiography. The respiratory battery consisted of measurements of nasal/buccal air flow, pressure transducer measurements from nose, thoracic and/or abdominal effort and intercostal surface electromyography. Video monitoring has been done to check for any parasomnia events. Nocturnal oxyhemoglobin saturations were obtained by finger oximetry. Step-paredes titration with positive airway pressure was utilized to control the respiratory events, if necessary. RESULTS: During the diagnostic sleep study sleep efficiency was decreased to 76.6 %. Latency to sleep onset was short 6.5 min. Sleep architecture showed stage NI was borderline 9.2 %, Delta sleep was normal 6.8 %, REM sleep was slightly decreased to 15.8 %. Respiratory channel showed 50 obstructive apneas, 0 mixed apneas, 0 central apneas, 6 hypopneas with lowest oxygen level 69%. Oxygen was below normal range for 16.7 minutes. Total apnea hypopnea index was 10.4. Heart rate was in the range between 50 and 58, average 53. EMG showed 1.1 periodic limb movements per hour with 0.7 micro-arousals per hour. IMPRESSIONS: 1. Obstructive sleep apnea hypopnea syndrome, mostly related to obstructive apneas with severe oxygen desaturation. Severe abnormalities of respiration in REM sleep, in REM sleep apnea-hypopnea index 55.3 2. No significant periodic limb movements have been documented. Please see other impressions from consultation PLAN: 1. The patient will have PAP titration for correction of respiratory abnormalities during the sleep. 2. Losing weight program. 3. Sleep hygiene with regular time in bed for at least 7-1/2 hours. 4. No driving if feeling sleepiness. Thank you very much for allowing me to participate in the management of your patient. Sincerely, Adria Lynn MD, PhD, FAASM. Diplomat of [place] [employer], Sleep Medicine Board by [place] [employer] Winder of [facility] [place]
== END 2023-03-26 05:45 | disposition home or self-care (01) ==
LOC: 3 N SLEEP 19:19
PROVIDERS: ATTEND Internal Medicine
DX: G47.33 Obstructive sleep apnea (adult) (pediatric) (principal); G47.36 Sleep related hypoventilation in conditions classified elsewhere; G47.52 REM sleep behavior disorder; Z88.0 Allergy status to penicillin
CPT/HCPCS: 95810

== ENCOUNTER → 2023-06-28 | Outpatient (CLI) | payer MEDICARE ==
--- NOTE | 2023-06-28 17:03 | NM ---
EXAMINATION TYPE: NM hepatobiliary w EF DATE OF EXAM: 06/28/2023 COMPARISON: NONE INDICATION: Right upper quadrant pain TECHNIQUE: After the intravenous administration of 5.2 mCi Tc 99m Mebrofenin hepatobiliary scintigrap hy is performed. Images were obtained immediately post injection. FINDINGS: There is prompt uptake and excretion of radiotracer by the liver. Extrahepatic ducts are identified at 6 minutes. The gallbladder is visualized within 6 minutes. Small bowel activity is noted within 22 minutes. At one hour 8 ounces of oral ensure plus is given to mimic CCK and gallbladder ejection fraction is c alculated at 79 %, which is at the upper limits of normal range.. (Normal >35% and <80%.). IMPRESSION: 1. Normal hepatobiliary scan
== END | disposition home or self-care (01) ==
LOC: RADNMMAIN 10:27
PROVIDERS: ATTEND Family Medicine
DX: R10.11 Right upper quadrant pain (principal)
CPT/HCPCS: 78226; A9537